=== PATIENT | male | born 1995 | race Caucasian/White ===

== ENCOUNTER → 2020-02-19 | Outpatient (CLI) | payer BC ==
[~2020-02-19] MED LIST: ALBU90I INH; BENZ100A PO; CEPH500 PO; DIPH25 PO; DIPH50 PO; GUAI600T33 PO; IBUP600 PO; PRED20 PO; PROCODE120 PO; TRAM50 PO
== END | disposition home or self-care (01) ==
LOC: LAB SHORT 11:29 → LAB EV 11:29
DX: B34.9 Viral infection, unspecified (principal)
CPT/HCPCS: U0002